=== PATIENT | female | born 1975 | race Two or more races ===

== ENCOUNTER 2017-12-31 18:17 | Emergency (ER) | payer BC, OTHER ==
[~2017-12-31] VITALS: Ht 157.5 cm; Wt 79.0 kg
[2017-12-31 20:30] VITALS: BP 158/75
[2017-12-31] MEDS ORDERED: metoclopramide 5 mg/ml inj IM ONE (21:25)
[2017-12-31] MEDS ORDERED: diphenhydrAMINE 50 mg/ml inj IM ONE (21:25)
== END 2017-12-31 22:59 | disposition home or self-care (01) ==
LOC: ER 18:19
DX: G43.909 Migraine, unspecified, not intractable, without status migrainosus (principal); E11.9 Type 2 diabetes mellitus without complications; Z88.8 Allergy status to other drugs, medicaments and biological substances
CPT/HCPCS: 96372; 99284; J1200; J2765

== ENCOUNTER 2020-08-24 09:03 | Emergency (ER) | payer BC ==
[~2020-08-24] VITALS: Ht 160 cm; Wt 76.1 kg
[2020-08-24] MEDS ORDERED: normal saline 1000ML IV soln IVB ONE (09:20)
[2020-08-24 09:50] LABS: BASOPHILS # (AUTO) 0.1 X10'3 (0-0.2); BASOPHILS % (AUTO) 0.8 % (0-1); EOSINOPHILS # (AUTO) 0.6 X10'3 (0-0.9); HEMATOCRIT 40.3 % (35.0-45.0); HEMOGLOBIN 13.6 g/dl (12.0-16.0); LYMPHOCYTES # (AUTO) 2.5 X10'3 (1.1-4.8); LYMPHOCYTES % (AUTO) 23.5 % (21-51); MEAN CORPUSCULAR HEMOGLOBIN 28.7 PG (27.0-31.0); MEAN CORPUSCULAR HGB CONC 33.7 g/dL (33.0-36.5); MEAN CORPUSCULAR VOLUME 85.4 FL (78-98); MEAN PLATELET VOLUME 10.3 FL (7.4-10.4); MONOCYTES # (AUTO) 0.6 X10'3 (0-0.9); MONOCYTES % (AUTO) 5.3 % (2-12); NEUTROPHILS # (AUTO) 6.8 X10'3 (1.8-7.7); NEUTROPHILS % (AUTO) 64.4 % (42-75); PLATELET COUNT 253 X10'3 (140-440); RED BLOOD COUNT 4.72 X10'6 (4.20-5.60); RED CELL DISTRIBUTION WIDTH 13.7 % (11.5-14.5); WHITE BLOOD COUNT 10.5 X10'3 (4.5-11.0)
[2020-08-24 10:05] LABS: ALANINE AMINOTRANSFERASE 40 U/L (12-78); ALBUMIN 3.8 G/DL (3.4-5.0); ALKALINE PHOSPHATASE 84 IU/L (46-116); ANION GAP 9 (8-16); ASPARTATE AMINO TRANSFERASE 24 U/L (10-37); BILIRUBIN,TOTAL 0.3 MG/DL (0.1-1.0); BLOOD UREA NITROGEN 12 MG/DL (7-18); BUN/CREATININE RATIO 14.6 (6.6-38.0); CALCIUM 8.6 MG/DL (8.5-10.1); CHLORIDE 106 MMOL/L (99-107); CREATININE 0.82 MG/DL (0.40-0.90); GLUCOSE 117 MG/DL (70-104); POTASSIUM 3.9 MMOL/L (3.5-5.1); SODIUM 138 MMOL/L (135-145); TOTAL CARBON DIOXIDE 23.2 MMOL/L (24-32); TOTAL PROTEIN 7.6 G/DL (6.4-8.2); eGFR 76 ML/MIN
[2020-08-24 10:32] LABS: CLARITY,URINE CLEAR (Clear); COLOR,URINE STRAW (Yellow); GLUCOSE, URINE NEGATIVE (Neg); KETONES,URINE NEGATIVE (Neg); LEUKOCYTE ESTERASE ,URINE NEGATIVE (Neg); NITRITES, URINE NEGATIVE (Neg); OCCULT BLOOD,URINE NEGATIVE (Neg); PROTEIN,URINE NEGATIVE (Neg); UROBILINOGEN,URINE 0.2 E.U/dL (0.2-1.0)
[2020-08-24] MEDS ORDERED: ketorolac tromethamine 15mg/ml inj. IV ONE (10:35)
[2020-08-24] MEDS ORDERED: diphenhydrAMINE 50 mg/ml inj IV ONE (10:35)
[2020-08-24] MEDS ORDERED: proCHLORperazine 10 MG/2 ml inj IV ONE (10:35)
[2020-08-24 10:49] LABS: UA COLLECTION TYPE NON-SPECIFIED
[2020-08-24 12:33] VITALS: BP 127/72
== END 2020-08-24 12:36 | disposition home or self-care (01) ==
LOC: ER 09:04
DX: E11.65 Type 2 diabetes mellitus with hyperglycemia (principal); G43.909 Migraine, unspecified, not intractable, without status migrainosus; R42 Dizziness and giddiness; R11.2 Nausea with vomiting, unspecified; H53.8 Other visual disturbances; Z86.2 Personal history of diseases of the blood and blood-forming organs and certain disorders involving the immune mechanism; Z88.8 Allergy status to other drugs, medicaments and biological substances
CPT/HCPCS: 36415; 80053; 81003; 82948; 85025; 93005; 96361; 96374; 96375; 99284; J0780; J1200; J1885; J7030

== ENCOUNTER 2020-10-25 15:03 | Emergency (ER) | payer BC ==
[~2020-10-25] VITALS: Ht 157.5 cm; Wt 75.4 kg
[2020-10-25 15:20] VITALS: BP 123/76
[2020-10-25] MEDS ORDERED: ARM1EACH89 (16:39)
== END 2020-10-25 17:07 | disposition home or self-care (01) ==
LOC: ER 15:05
DX: M77.11 Lateral epicondylitis, right elbow (principal); E11.65 Type 2 diabetes mellitus with hyperglycemia; Z86.2 Personal history of diseases of the blood and blood-forming organs and certain disorders involving the immune mechanism; Z88.8 Allergy status to other drugs, medicaments and biological substances
CPT/HCPCS: 29260; 99283

== ENCOUNTER 2021-08-03 14:34 | Emergency (ER) | payer BC ==
[~2021-08-03] VITALS: Ht 154.9 cm; Wt 77.7 kg
[~2021-08-03 14:34] MED LIST: ARM1EACH89
[2021-08-03 15:26] LABS: BASOPHILS # (AUTO) 0.1 X10'3 (0-0.2); BASOPHILS % (AUTO) 0.7 % (0-1); EOSINOPHILS # (AUTO) 0.6 X10'3 (0-0.9); EOSINOPHILS % (AUTO) 6.2 % (0-6); LYMPHOCYTES # (AUTO) 2.7 X10'3 (1.1-4.8); LYMPHOCYTES % (AUTO) 28.8 % (21-51); MEAN CORPUSCULAR HEMOGLOBIN 23.1 PG (27.0-31.0); MEAN CORPUSCULAR VOLUME 72.2 FL (78-98); MEAN PLATELET VOLUME 8.5 FL (7.4-10.4); MONOCYTES # (AUTO) 0.6 X10'3 (0-0.9); MONOCYTES % (AUTO) 6.2 % (2-12); NEUTROPHILS # (AUTO) 5.5 X10'3 (1.8-7.7); NEUTROPHILS % (AUTO) 58.1 % (42-75); PLATELET COUNT 411 X10'3 (140-440); RED BLOOD COUNT 2.93 X10'6 (4.20-5.60); RED CELL DISTRIBUTION WIDTH 16.6 % (11.5-14.5); WHITE BLOOD COUNT 9.5 X10'3 (4.5-11.0)
[2021-08-03 15:29] LABS: HEMATOCRIT 21.2 % (35.0-45.0); HEMOGLOBIN 6.8 g/dl (12.0-16.0)
--- NOTE | 2021-08-03 15:30 | NUR ---
CRITICAL VALUE HGB 6.8, HCT 21.2
[2021-08-03 15:43] LABS: ALANINE AMINOTRANSFERASE 55 U/L (12-78); ALBUMIN 3.6 G/DL (3.4-5.0); ALBUMIN/GLOBULIN RATIO 0.9 (1.1-1.5); ALKALINE PHOSPHATASE 78 IU/L (46-116); ANION GAP 11 (8-16); ASPARTATE AMINO TRANSFERASE 28 U/L (10-37); BILIRUBIN,TOTAL 0.2 MG/DL (0.1-1.0); BLOOD UREA NITROGEN 6 MG/DL (7-18); BUN/CREATININE RATIO 7.7 (6.6-38.0); CALCIUM 8.3 MG/DL (8.5-10.1); CHLORIDE 107 MMOL/L (99-107); CREATININE 0.78 MG/DL (0.40-0.90); GLUCOSE 96 MG/DL (70-104); POTASSIUM 3.8 MMOL/L (3.5-5.1); SODIUM 141 MMOL/L (135-145); TOTAL PROTEIN 7.4 G/DL (6.4-8.2); eGFR 80 ML/MIN
[2021-08-03 17:01] VITALS: BP 115/65
[2021-08-03 17:16] VITALS: BP 104/65
[2021-08-03 19:31] VITALS: BP 107/58
[2021-08-03 19:46] VITALS: BP 120/74
== END 2021-08-03 19:48 | disposition home or self-care (01) ==
LOC: ER 14:35
DX: D62 Acute posthemorrhagic anemia (principal); R42 Dizziness and giddiness; E11.9 Type 2 diabetes mellitus without complications; Z86.2 Personal history of diseases of the blood and blood-forming organs and certain disorders involving the immune mechanism; Z88.8 Allergy status to other drugs, medicaments and biological substances
CPT/HCPCS: 36415; 36430; 80053; 85025; 85610; 86885; 86900; 86901; 86920; 93005; 99285; P9016

== ENCOUNTER 2021-08-08 14:16 | Emergency (ER) | payer BC ==
[~2021-08-08] VITALS: Ht 154.9 cm; Wt 77.7 kg
[2021-08-08 14:50] LABS: BASOPHILS % (AUTO) 0.5 % (0-1); EOSINOPHILS # (AUTO) 0.5 X10'3 (0-0.9); EOSINOPHILS % (AUTO) 5.3 % (0-6); HEMOGLOBIN 10.6 g/dl (12.0-16.0); LYMPHOCYTES % (AUTO) 22.1 % (21-51); MEAN CORPUSCULAR HEMOGLOBIN 25.2 PG (27.0-31.0); MEAN CORPUSCULAR HGB CONC 32.2 g/dL (33.0-36.5); MEAN CORPUSCULAR VOLUME 78.2 FL (78-98); MEAN PLATELET VOLUME 8.6 FL (7.4-10.4); MONOCYTES # (AUTO) 0.6 X10'3 (0-0.9); MONOCYTES % (AUTO) 6.7 % (2-12); NEUTROPHILS # (AUTO) 5.8 X10'3 (1.8-7.7); NEUTROPHILS % (AUTO) 65.4 % (42-75); PLATELET COUNT 395 X10'3 (140-440); RED BLOOD COUNT 4.22 X10'6 (4.20-5.60); RED CELL DISTRIBUTION WIDTH 20.9 % (11.5-14.5); WHITE BLOOD COUNT 8.9 X10'3 (4.5-11.0)
[2021-08-08 15:20] LABS: ALANINE AMINOTRANSFERASE 92 U/L (12-78); ALKALINE PHOSPHATASE 94 IU/L (46-116); ANION GAP 10 (8-16); ASPARTATE AMINO TRANSFERASE 57 U/L (10-37); BILIRUBIN,TOTAL 0.2 MG/DL (0.1-1.0); BLOOD UREA NITROGEN 8 MG/DL (7-18); BUN/CREATININE RATIO 9.6 (6.6-38.0); CHLORIDE 103 MMOL/L (99-107); CREATININE 0.83 MG/DL (0.40-0.90); GLUCOSE 104 MG/DL (70-104); POTASSIUM 3.8 MMOL/L (3.5-5.1); SODIUM 139 MMOL/L (135-145); TOTAL CARBON DIOXIDE 25.9 MMOL/L (24-32); TOTAL PROTEIN 8.2 G/DL (6.4-8.2); eGFR 74 ML/MIN
[2021-08-08 16:00] LABS: ANISOCYTOSIS 3+; MICROCYTOSIS 1+; PLATELET ESTIMATE NORMAL; POLYCHROMASIA 2+
[2021-08-08 16:01] LABS: TEAR DROP CELLS FEW
[2021-08-08 16:08] VITALS: BP 112/59
== END 2021-08-08 16:14 | disposition home or self-care (01) ==
LOC: ER 14:17
DX: R42 Dizziness and giddiness (principal); D50.0 Iron deficiency anemia secondary to blood loss (chronic); R06.02 Shortness of breath; R53.83 Other fatigue; R53.1 Weakness; R07.89 Other chest pain; E11.9 Type 2 diabetes mellitus without complications; Z86.2 Personal history of diseases of the blood and blood-forming organs and certain disorders involving the immune mechanism; Z88.8 Allergy status to other drugs, medicaments and biological substances
CPT/HCPCS: 71045; 80053; 85008; 85025; 85610; 86885; 86900; 86901; 93005; 99285